=== PATIENT | male | born 1995 | race Caucasian/White ===

== ENCOUNTER 2020-11-25 23:57 | Emergency (ER) | payer OTHER ==
[~2020-11-25] VITALS: Ht 172.7 cm; Wt 99.8 kg
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
--- NOTE | 2020-11-26 00:25 | NUR ---
ED Nurse Note: Pt taken down to imaging for CT-Scan. will resume care when pt returns to department.
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
--- NOTE | 2020-11-26 00:50 | NUR ---
ED Nurse Note: Pt returned to department, [employer] officers at bedside waiting to talk to pt, both officers signed log book, pt returned with no changes, remains awake and alert and ambulatory, medicated for pain, pt waiting for results.
[2020-11-26] MEDS ORDERED: IBUPROFEN600 M1 ORAL (01:04)
[2020-11-26 01:10] VITALS: BP 131/88
--- NOTE | 2020-11-26 01:10 | NUR ---
ER DISCHARGE NOTE: Patient is cleared to be discharged per ERMD, pt is aox4, on room air, with stable vital signs. pt was given dc and prescription instructions, pt was able to verbalize understanding, pt id band removed without complications. pt is able to ambulate with steady gait. pt took all belongings.
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
== END 2020-11-26 01:10 | disposition home or self-care (01) ==
LOC: EDBD 23:57 → EMR 11-26 00:30
DX: S09.90XA Unspecified injury of head, initial encounter (principal); S39.012A Strain of muscle, fascia and tendon of lower back, initial encounter; V49.9XXA Car occupant (driver) (passenger) injured in unspecified traffic accident, initial encounter; Y92.9 Unspecified place or not applicable; Z88.8 Allergy status to other drugs, medicaments and biological substances
CPT/HCPCS: 70450; 72110; 99284